=== PATIENT | female | born 1975 | race African-American/Black ===

== ENCOUNTER → 2018-07-11 | Outpatient (CLI) | payer OTHER ==
[~2018-07-11] MED LIST: BACTRIM DS TAB1 EACH PO; EQ IBUPROFEN P1 EACH PO; IBUPROFEN 800800 M1 PO; NAPROSYN500 MG PO; NOHOMEMEDICATIONS; PENICILLIN V P500 MG PO; PENICILLIN VK250 MG PO; PERCOCET 5-3251 EACH PO; PHENERGAN 25 MG25 M1 PO; ULTRAM 50MG TAB50 MG PO
== END ==
LOC: M.RAD 07:30
DX: Z12.31 Encounter for screening mammogram for malignant neoplasm of breast (principal)

== ENCOUNTER → 2019-01-20 | Outpatient (CLI) | payer OTHER | LOC: M.RAD 11:20 | DX: M47.816 Spondylosis without myelopathy or radiculopathy, lumbar region (principal); M25.551 Pain in right hip ==

== ENCOUNTER → 2019-04-21 | Outpatient (CLI) | payer OTHER | LOC: M.RAD 04-15 16:26 | DX: N60.02 Solitary cyst of left breast (principal); N63.10 Unspecified lump in the right breast, unspecified quadrant; R92.2 Inconclusive mammogram ==

== ENCOUNTER 2019-07-22 08:24 | Emergency (ER) | payer OTHER ==
[~2019-07-22] VITALS: Ht 152.4 cm; Wt 63.5 kg
[2019-07-22 08:51] LABS: ABSOLUTE EOSINOPHILS 0.2 thou/uL (0.0-0.7); ABSOLUTE LYMPHOCYTES 0.9 thou/uL (0.8-5.3); ABSOLUTE MONOCYTES 0.8 thou/uL (0.0-1.2); ABSOLUTE NEUTROPHILS 6.4 thou/uL (1.6-8.1); BASOPHILS 0.2 %; EOSINOPHILS 2.6 %; HEMATOCRIT 37.3 % (37.0-47.0); HEMOGLOBIN 12.1 gm/dL (12.0-15.0); LYMPHOCYTES 10.4 %; MCH 22.2 pg (26.0-34.0); MCHC 32.5 g/dL (28.0-37.0); MCV 68.3 fL (80.0-100.0); MONOCYTES 9.7 %; MPV 7.2 fl. (7.2-11.1); NUCLEATED RBCS 0 /100WBC; PLATELET COUNT* 273 thou/uL (150-400); POLYS 77.1 %; RBC 5.47 mil/uL (4.20-5.00); RDW-CV 15.9 % (10.5-14.5); WBC 8.3 thou/uL (4.0-11.0)
[2019-07-22 09:04] LABS: APTT 29.6 Seconds (25.0-31.3)
[2019-07-22 09:10] LABS: ANION GAP 9 mmol/L (7-16); BUN 9 mg/dL (7-18); CALCIUM 8.5 mg/dL (8.5-10.1); CHLORIDE 103 mmol/L (98-107); CO2 24 mmol/L (21-32); CREATININE 0.7 mg/dL (0.6-1.3); GLUCOSE 96 mg/dL (70-99); SODIUM 136 mmol/L (136-145)
[2019-07-22 09:15] LABS: ALBUMIN 3.5 g/dL (3.4-5.0); ALKALINE PHOSPHATASE 67 U/L (46-116); CK-MB MASS < 0.5 ng/mL (<0.5-3.6); LIPASE 87 U/L (73-393); MAGNESIUM 1.8 mg/dL (1.8-2.4); NT-PRO BRAIN NAT PEPTIDE 69 pg/mL (<300); SGOT 20 U/L (15-37); SGPT 27 U/L (30-65); TOTAL BILIRUBIN 0.4 mg/dL (<0.1-1.0); TOTAL PROTEIN 7.7 g/dL (6.4-8.2)
[2019-07-22 09:38] VITALS: BP 104/56
[2019-07-22 10:40] LABS: PLATELET ESTIMATE ADEQUATE
[2019-07-22 10:41] LABS: ANISOCYTOSIS 2+; HYPOCHROMASIA 2+; MICROCYTES 2+; POIKILOCYTOSIS 1+
--- NOTE | 2019-07-22 15:45 | EKG ---
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1975 Requested By: Anton Gates Order Number: [id number] MD: Erik Velasco Measurements Intervals [place] Rate: 97 P: 37 MS: 168 QRS: 17 QRSD: 73 T: 29 QT: 327 QTc: 416 Interpretive Statements Sinus rhythm Minimal ST elevation, anterior leads probably normal variant Baseline wander in lead(s) V6 Compared to ECG 12/25/2012 22:45:56 no significant change Electronically Signed On 07-22-2019 15:44:52 BLOG WRITER by Erik Velasco [email or web address] <ELECTRONICALLY SIGNED> By: Erik Velasco MD, [facility] 07/22/19 1544 Erik Velasco MD, [facility] /EPI
== END 2019-07-22 09:39 | disposition home or self-care (01) ==
LOC: M.ERS 08:24
PROVIDERS: Family Medicine
DX: R07.89 Other chest pain (principal); F17.210 Nicotine dependence, cigarettes, uncomplicated; Z87.442 Personal history of urinary calculi; Z98.890 Other specified postprocedural states

== ENCOUNTER 2020-12-31 17:02 | Emergency (ER) | payer OTHER ==
[~2020-12-31] VITALS: Ht 152.4 cm; Wt 63.5 kg
[2020-12-31] MEDS ORDERED: ZYRTEC10 M5 PO (17:28)
[2020-12-31] MEDS ORDERED: MECLIZINE HCL25 M1 PO (17:29)
[2020-12-31] MEDS ORDERED: BUTALB-APAP-CA1 EACH PO (17:29)
[2020-12-31 17:56] LABS: ABSOLUTE EOSINOPHILS 0.2 thou/uL (0.0-0.7); ABSOLUTE LYMPHOCYTES 3.4 thou/uL (0.8-5.3); ABSOLUTE MONOCYTES 0.8 thou/uL (0.0-1.2); ABSOLUTE NEUTROPHILS 3.1 thou/uL (1.6-8.1); BASOPHILS 0.6 %; HEMOGLOBIN 12.7 gm/dL (12.0-15.0); LYMPHOCYTES 45.8 %; MCH 21.8 pg (26.0-34.0); MCHC 31.8 g/dL (28.0-37.0); MCV 68.6 fL (80.0-100.0); MPV 7.6 fl. (7.2-11.1); NUCLEATED RBCS 0 /100WBC; PLATELET COUNT* 271 thou/uL (150-400); POLYS 40.6 %; RBC 5.83 mil/uL (4.20-5.00); RDW-CV 15.4 % (10.5-14.5); WBC 7.5 thou/uL (4.0-11.0)
[2020-12-31 18:06] LABS: ANION GAP 9 mmol/L (7-16); BUN 9 mg/dL (7-18); CALCIUM 9.4 mg/dL (8.5-10.1); CHLORIDE 100 mmol/L (98-107); CO2 28 mmol/L (21-32); CREATININE 0.6 mg/dL (0.6-1.3); GLUCOSE 114 mg/dL (70-99); POTASSIUM 3.7 mmol/L (3.5-5.1); SODIUM 137 mmol/L (136-145)
[2020-12-31 18:08] LABS: APTT 26.6 Seconds (25.0-31.3); PROTIME 10.2 Seconds (9.20-11.50)
[2020-12-31 18:16] LABS: ALBUMIN 3.6 g/dL (3.4-5.0); ALKALINE PHOSPHATASE 86 U/L (46-116); NT-PRO BRAIN NAT PEPTIDE < 5 pg/mL (<300); SGOT 30 U/L (15-37); SGPT 32 U/L (30-65); TOTAL BILIRUBIN 0.3 mg/dL (<0.1-1.0); TOTAL PROTEIN 8.1 g/dL (6.4-8.2)
[2020-12-31 18:25] LABS: LARGE PLATELETS OCCASIONAL; PLATELET ESTIMATE ADEQUATE
[2020-12-31 18:27] LABS: ANISOCYTOSIS 1+; MICROCYTES 3+
[2020-12-31] MEDS ORDERED: AMOXICILLIN 50500 MG PO (18:37)
[2020-12-31 18:50] VITALS: BP 121/70
--- NOTE | 2021-01-02 09:48 | EKG ---
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
== END 2020-12-31 18:52 | disposition home or self-care (01) ==
LOC: M.ERS 17:02
PROVIDERS: Family Medicine
DX: R42 Dizziness and giddiness (principal); J32.9 Chronic sinusitis, unspecified; F17.210 Nicotine dependence, cigarettes, uncomplicated; Z87.442 Personal history of urinary calculi; Z98.890 Other specified postprocedural states